=== PATIENT | female | born 1980 ===

== ENCOUNTER 2021-12-29 04:10 | Day surgery (SDC) | payer OTHER ==
[2021-12-28 10:32] VITALS: BMI 29.8
[~2021-12-29 04:10] MED LIST: LIDOCAINE HCL 1%, 10 MG/ML (20ML VIAL) INF ONE
[2021-12-29] MEDS ORDERED: LIDOCAINE HCL 1%, 10 MG/ML (20ML VIAL) ONE ×2 (07:54→07:55)
[2021-12-29] MEDS ORDERED: PROPOFOL 20 ML ONE ×2 (08:52)
[2021-12-29] MEDS ORDERED: LIDOCAINE HCL/PF 2% SDV 5ML VIAL ONE (08:52)
[2021-12-29] MEDS ORDERED: MIDAZOLAM HCL 2 MG/2 ML SINGLE DOSE VIAL ONE (08:52)
[2021-12-29] MEDS ORDERED: ONDANSETRON 4 MG/2 ML VIAL IVPUSH PRN (09:17)
[2021-12-29] MEDS ORDERED: oxyCODONE HCL 5 MG TABLET PO PRN (09:17)
[2021-12-29] MEDS ORDERED: IBUPROFEN 800 MG/8 ML IJ IVPB PRN (09:17)
[2021-12-29] MEDS ORDERED: LACTATED RINGERS SOLUTION 1,000 ML IV SCH (09:30)
[2021-12-29] MEDS ORDERED: LIDOCAINE HCL 1%, 10 MG/ML (20ML VIAL) INF ONE (09:48)
[2021-12-29] MEDS ORDERED: DEXAMETHASONE SOD PHOSPHATE 4 MG/1 ML VIAL ONE (10:03)
[2021-12-29 12:35] VITALS: RESP 18
[2021-12-29 13:48] VITALS: BP 134/84; PULSE 85; TEMP 97.7
== END 2021-12-29 14:07 | disposition home or self-care (01) ==
LOC: JASU-SURG 04:10
PROVIDERS: ATTEND Surgery
PROC: 0HBU0ZX Excision of Left Breast, Open Approach, Diagnostic (ICD-10-PCS; principal; 2021-12-29 09:00)
DX: D24.2 Benign neoplasm of left breast (principal); N63.20 Unspecified lump in the left breast, unspecified quadrant
CPT/HCPCS: 81025; 88307-TC; 94760